=== PATIENT | female | born 1935 | race Caucasian/White ===

== ENCOUNTER 2025-01-03 17:10 | Inpatient (IN) | payer MEDICARE, OTHER ==
[~2025-01-03] VITALS: Ht 167.6 cm; Wt 72.0 kg
[~2025-01-03 17:10] MED LIST: ACET-66 PO; CHOL10002 PO; CITA-144 PO; DICL100G60 TP; DOCU50LI40 PO; DONE-51 PO; FAMO20 PO; FOLI1TAB82 PO; GABA-1216 PO; GUAI100L96 PO; IBUP-1506 PO; LEVO750T68 PO; LOPE2TAB26 PO; MAGN-169 PO; MULT-264 PO; NYST30CR9 TP; OMEP-148 PO
[2025-01-03 18:37] LABS: PLATELET COUNT (AUTO) 196 K/uL (150-450); RED BLOOD CELL COUNT(AUTO) 3.93 MIL/uL (4.00-5.20); RED CELL DISTRIBUTION WIDTH 12.9 % (11.5-14.5); WHITE BLOOD COUNT (AUTO) 8.8 K/uL (4.5-11.0)
[2025-01-03 18:45] LABS: CALCIUM, TOTAL 8.6 mg/dL (8.8-10.5); CREATININE 0.98 mg/dL (0.60-1.30); GLOMERULAR FILTR. RATE CALC 54 mL/min (>60); GLUCOSE,RANDOM 102 mg/dL (70-110); SODIUM SERUM 140 mmol/L (136-145); UREA NITROGEN, BLOOD 20 mg/dL (7-18)
[2025-01-03 18:53] LABS: TROPONIN I-HIGH SENSITIVITY 15 ng/L (<51)
[2025-01-03 22:54] VITALS: BP 122/78; PULSE 68; RESP 16; TEMP 98.2; O2SAT 97
[2025-01-03] MEDS ORDERED: ACETAMINOPHEN 325 MG TABLET PO PRN (23:00)
[2025-01-03] MEDS ORDERED: ONDANSETRON HCL 4 MG/2 ML VIAL IVP PRN (23:00)
[2025-01-03] MEDS ORDERED: MAGNESIUM HYDROXIDE SUSPENSION 30 ML UDCUP PO PRN (23:00)
[2025-01-03] MEDS ORDERED: HYDROCODONE/ACETAMINOPHEN 5-325 MG TABLET PO PRN (23:00)
[2025-01-03] MEDS ORDERED: ZOLPIDEM TARTRATE 5 MG TABLET PO PRN (23:00)
[2025-01-03] MEDS ORDERED: ALBUTEROL SULFATE 2.5 MG/0.5 ML NEB SOLUTION NEB PRN (23:00)
[2025-01-03] MEDS ORDERED: BISACODYL 10 MG RECTAL RECTAL SUPPOSITORY PR PRN (23:00)
[2025-01-03] MEDS ORDERED: MORPHINE SULFATE 4 MG/ML SYRINGE IVP PRN (23:00)
[2025-01-03] MEDS ORDERED: IPRATROPIUM BROMIDE 0.5 MG/2.5 ML NEB SOLUTION NEB PRN (23:00)
[2025-01-04] VITALS: BP 112/73; PULSE 68; RESP 18; TEMP 98.1; O2SAT 98
[2025-01-04] MEDS: LEVOFLOXACIN 750 MG/D5% WATER 150 ML IV SCH (01:41)
[2025-01-04] MEDS: HEPARIN SODIUM,PORCINE 5,000 UNITS/ML VIAL SQ SCH (01:42)
[2025-01-04 04:25] VITALS: BP 129/64; PULSE 61; RESP 18; TEMP 98.6; O2SAT 98
[2025-01-04 08:03] LABS: PLATELET COUNT (AUTO) 191 K/uL (150-450); RED BLOOD CELL COUNT(AUTO) 3.79 MIL/uL (4.00-5.20); RED CELL DISTRIBUTION WIDTH 12.6 % (11.5-14.5); WHITE BLOOD COUNT (AUTO) 7.1 K/uL (4.5-11.0)
[2025-01-04 08:08] LABS: CALCIUM, TOTAL 8.5 mg/dL (8.8-10.5); CREATININE 0.85 mg/dL (0.60-1.30); GLOMERULAR FILTR. RATE CALC > 60 mL/min (>60); GLUCOSE,RANDOM 88 mg/dL (70-110); SODIUM SERUM 137 mmol/L (136-145); UREA NITROGEN, BLOOD 22 mg/dL (7-18)
[2025-01-04] MEDS: CHOLECALCIFEROL (VIT D3) 1,000 UNITS [25 MCG] TABLET PO SCH (08:10)
[2025-01-04] MEDS: OMEPRAZOLE 20 MG CAPSULE PO SCH (08:10)
[2025-01-04] MEDS: DOCUSATE SODIUM 100 MG CAPSULE PO SCH (08:10)
[2025-01-04] MEDS: PANTOPRAZOLE SODIUM 40 MG DR TABLET PO SCH (08:10)
[2025-01-04 08:13] LABS: APPEARANCE,URINE TURBID (CLEAR); GLUCOSE, URINE (UA) NEGATIVE (NEGATIVE); LEUKOCYTE ESTERASE ,URINE LARGE (NEGATIVE); NITRATE,URINE NEGATIVE (NEGATIVE); OCCULT BLOOD,URINE MODERATE (NEGATIVE); SPECIFIC GRAVITIY, URINE 1.018 (1.003-1.030)
[2025-01-04 08:22] VITALS: BP 112/98; PULSE 78; RESP 15; TEMP 98.6; O2SAT 93
[2025-01-04 08:27] LABS: SQUAMOUS EPITHELIAL CELL,UR Few /LPF (None Seen); YEAST,URINE Many /HPF (None Seen)
[2025-01-04] MEDS ORDERED: POTASSIUM CHL 10 MEQ/WATER 50 ML IV PRN (09:15)
[2025-01-04] MEDS: POTASSIUM CHLORIDE 20 MEQ ER TABLET PO PRN (11:40)
[2025-01-04 12:02] VITALS: BP 119/83; PULSE 62; RESP 16; TEMP 98.4; O2SAT 96
[2025-01-04 16:02] VITALS: BP 100/88; PULSE 60; RESP 16; TEMP 98.6; O2SAT 100
[2025-01-04 19:31] VITALS: BP 110/73; PULSE 17; RESP 17; TEMP 98.4; O2SAT 98
[2025-01-04] MEDS ORDERED: DONEPEZIL HCL 10 MG TABLET PO SCH (21:00)
[2025-01-05 00:28] VITALS: BP 115/74; PULSE 65; RESP 19; TEMP 98.7; O2SAT 97
[2025-01-05 05:17] VITALS: BP 118/63; PULSE 63; RESP 18; TEMP 97.7; O2SAT 100
[2025-01-05 06:01] LABS: PLATELET COUNT (AUTO) 181 K/uL (150-450); RED BLOOD CELL COUNT(AUTO) 3.77 MIL/uL (4.00-5.20); RED CELL DISTRIBUTION WIDTH 13.2 % (11.5-14.5); WHITE BLOOD COUNT (AUTO) 5.5 K/uL (4.5-11.0)
[2025-01-05 06:17] LABS: CALCIUM, TOTAL 8.4 mg/dL (8.8-10.5); CREATININE 0.77 mg/dL (0.60-1.30); GLOMERULAR FILTR. RATE CALC > 60 mL/min (>60); GLUCOSE,RANDOM 85 mg/dL (70-110); SODIUM SERUM 138 mmol/L (136-145); UREA NITROGEN, BLOOD 19 mg/dL (7-18)
[2025-01-05] MEDS: ETHYL ALCOHOL 62% ANTISEPTIC NASAL SANITIZER 0.6 ML AMPUL NASAL SCH (09:00)
[2025-01-05 13:06] VITALS: BP 131/85; PULSE 55; RESP 16; TEMP 97.5; O2SAT 96
[2025-01-05 19:36] VITALS: BP 117/64; PULSE 53; RESP 18; TEMP 97.7; O2SAT 95
[2025-01-06] MEDS ORDERED: SODIUM CHLORIDE 0.9% 250 ML IV ONE (00:08)
[2025-01-06 07:09] LABS: PLATELET COUNT (AUTO) 180 K/uL (150-450); RED BLOOD CELL COUNT(AUTO) 3.77 MIL/uL (4.00-5.20); RED CELL DISTRIBUTION WIDTH 13.0 % (11.5-14.5); WHITE BLOOD COUNT (AUTO) 5.3 K/uL (4.5-11.0)
[2025-01-06 07:26] LABS: CALCIUM, TOTAL 8.3 mg/dL (8.8-10.5); CREATININE 0.70 mg/dL (0.60-1.30); GLOMERULAR FILTR. RATE CALC > 60 mL/min (>60); GLUCOSE,RANDOM 105 mg/dL (70-110); SODIUM SERUM 138 mmol/L (136-145); UREA NITROGEN, BLOOD 19 mg/dL (7-18)
== END 2025-01-06 17:55 | DRG 73 ==
LOC: EMS 17:11 → EDH 19:19 → 5S 22:17 → 5N 01-04 12:30 → 6S 01-05 14:30
PROVIDERS: ADMIT Internal Medicine; ATTEND Internal Medicine
DX: G90.89 Other disorders of autonomic nervous system (principal); J18.9 Pneumonia, unspecified organism; R62.7 Adult failure to thrive; N39.0 Urinary tract infection, site not specified; F32.A Depression, unspecified; F02.80 Dementia in other diseases classified elsewhere, unspecified severity, without behavioral disturbance, psychotic disturbance, mood disturbance, and anxiety; M79.601 Pain in right arm; E87.6 Hypokalemia; R29.6 Repeated falls; K21.9 Gastro-esophageal reflux disease without esophagitis; I48.0 Paroxysmal atrial fibrillation; Z79.899 Other long term (current) drug therapy; Z68.25 Body mass index [BMI] 25.0-25.9, adult
CPT/HCPCS: 71045; 80048; 81001; 83880; 84132; 84484; 85025; 85610; 85730; 87040; 87081; 87086; 92507; 92610; 93005; 97162; 97530; 99285; G0378; J1644; J1956; J7050; 36415-L1; 36415-TC